=== PATIENT | female | born 1960 | race Caucasian/White ===

== ENCOUNTER → 2017-07-22 | Outpatient (CLI) | payer BC ==
[~2017-07-22] MED LIST: Aygestin5 MG; CYCL10; ESTR.1TPBW; LORA10; MEDR2.5; NAPR500; OMEP20ER; PREG50; VENL37.5ER; ZOLP5
[2017-07-24 13:59] LABS: HPV Genotype 16 Not Detected (NOTDET); HPV Genotype 18 Not Detected (NOTDET)
[2017-07-29 11:27] LABS: HPV High Risk Other Not Detected (NOTDET)
== END | disposition home or self-care (01) ==
LOC: OLS 15:08
PROVIDERS: Obstetrics & Gynecology Gynecology
DX: Z12.4 Encounter for screening for malignant neoplasm of cervix (principal); R93.8 Abnormal findings on diagnostic imaging of other specified body structures
CPT/HCPCS: 87624; 88142

== ENCOUNTER 2017-08-18 11:25 | Day surgery (SDC) | payer BC ==
[~2017-08-18] VITALS: Ht 170.2 cm; Wt 68.0 kg
[~2017-08-18 11:25] MED LIST changes: -VENL37.5ER
[2017-08-18] MEDS ORDERED: VENL37.5ER (12:13)
== END 2017-08-18 14:37 | disposition home or self-care (01) ==
LOC: ORSCSDS 11:25
PROVIDERS: Obstetrics & Gynecology Gynecology
PROC: 0UDB7ZX Extraction of Endometrium, Via Natural or Artificial Opening, Diagnostic (ICD-10-PCS; principal; 2017-08-18 13:00)
PROC: 0UBC8ZX Excision of Cervix, Via Natural or Artificial Opening Endoscopic, Diagnostic (ICD-10-PCS; principal; 2017-08-18 13:00)
DX: R93.8 Abnormal findings on diagnostic imaging of other specified body structures (principal); M79.7 Fibromyalgia; Z79.899 Other long term (current) drug therapy
CPT/HCPCS: 88305; J0690; J1100; J1885; J2250; J2405; J3010; J7120

== ENCOUNTER 2025-06-27 07:11 | Day surgery (SDC) | payer MEDICARE ==
[~2025-06-27] VITALS: Ht 167.6 cm; Wt 76.0 kg
[~2025-06-27 07:11] MED LIST changes: +ACET500 PO; +VENL37.5ER
[2025-06-27] MEDS ORDERED: CELE200 PO (07:26)
[2025-06-27 07:32] VITALS: BP 134/88
--- NOTE | 2025-06-27 07:45 | NUR ---
PT TO UNIT AMBULATORY WITH STEADY GAIT. PT ABLE TO USE RESTROOM INDEPENDENTLY. PT BROUGHT WATER BOTTLE TO UNIT WITH HER, WHEN QUESTIONED SHE REPORTING DRINKING WATER ALL MORNING. HER LAST DRINK WAS REPORTED AT 0715. DR. VINCENT INFORMED OF NEEDING TO DELAY THE PROCEDURE DUE TO NPO STATUS. HE IS AGREEABLE TO STARTING THE PROCEDURE AT 0915. WARM BLANKET PROVIDED TO PT, CALL LIGHT IN REACH. PT REQUESTED LIGHTS TURNED OFF AND CURTAIN TO BE CLOSED SO SHE COULD NAP. WILL CONTINUE TO MONITOR PT UNTIL GOING INTO HER PROCEDURE. Pre-Op teaching done. Pt verbalizes understanding. History, Chart, Medications and Allergies reviewed before start of procedure. Patient States Post-Procedure ride home has been arranged WITH BOYFRIEND. ALL BELONGINGS INCLUDING GLASSES PURSE AND CELL PHONE LEFT IN DAY SURGERY BAY DURING PROCEDURE.
--- NOTE | 2025-06-27 09:36 | NUR ---
06/27/25 0936 Compa Talamantes CONFIRMED AND REVIEWED H&P, MEDCICATIONS, ALLERGIES, MEDICAL HISTORY, RESPIRATORY HISTORY, VITAL SIGNS, 3-LEAD EKG, CONSENTS, AND PHYSICIAN ORDERS. PATIENT CONFIRMS NPO STATUS AND AGREES WITH SCHEDULED PROCEDURE. MONITOR INTACT WITH CONTINUOUS PULSE OXIMETRY, CAPNOGRAPHY, 3-LEAD EKG, INTERMITTENT BP. SUPPLEMENTAL O2 TO BE TITRATED THROUGHOUT PROCEDURE TO MAINTAIN O2 SATURATION ABOVE 90%. PATIENT DETERMINED TO BE ASA APPROPRIATE FOR PROPOFOL SEDATION PRIOR TO START OF PROCEDURE BY DR. VINCENT. Bite Block Placed AT START OF UPPER SCOPE.
[2025-06-27 10:48] VITALS: BP 143/80
--- NOTE | 2025-06-27 11:06 | NUR ---
Discharge instructions reviewed with patient. Patient verbalizes understanding. Copy given to patient to take home. Patient States Post-Procedure ride home has been arranged. Discharged via wheelchair to private car for ride home.
== END 2025-06-27 11:07 | disposition home or self-care (01) ==
LOC: ORSCMMR 07:11 → ORD 08:30 → ORSCMMR 08:30
PROVIDERS: Student in an Organized Health Care Education/Training Program
PROC: 0DBP8ZX Excision of Rectum, Via Natural or Artificial Opening Endoscopic, Diagnostic (ICD-10-PCS; principal; 2025-06-27 08:30)
PROC: 0DB78ZX Excision of Stomach, Pylorus, Via Natural or Artificial Opening Endoscopic, Diagnostic (ICD-10-PCS; principal; 2025-06-27 08:30)
DX: Z12.11 Encounter for screening for malignant neoplasm of colon (principal); K62.1 Rectal polyp; K21.00 Gastro-esophageal reflux disease with esophagitis, without bleeding; R13.10 Dysphagia, unspecified; K25.9 Gastric ulcer, unspecified as acute or chronic, without hemorrhage or perforation; K64.0 First degree hemorrhoids; E16.2 Hypoglycemia, unspecified; F32.A Depression, unspecified; M79.7 Fibromyalgia; G62.9 Polyneuropathy, unspecified; G50.0 Trigeminal neuralgia; E78.5 Hyperlipidemia, unspecified; Z79.899 Other long term (current) drug therapy
CPT/HCPCS: 88305; 88342; J2704; J7120